=== PATIENT | male | born 1950 | race Hispanic/Latino ===

== ENCOUNTER 2019-02-13 13:29 | Emergency (ER) | payer OTHER ==
--- NOTE | 2019-02-13 14:08 | EDPHYS ---
Physician Documentation [facility] Name: Rei Murcia Age: 68 yrs Sex: Male : 1950 Arrival Date: 02/13/2019 Time: 13:34 Bed 13 Private MD: Efren Ramos R ED Physician Dong Umanzor HPI: 02/13 14:03 This 68 yrs old Male presents to ER via Ambulatory with complaints of Low Back kb Pain. 14:03 The patient presents with pain that is acute, with no known mechanism of injury. kb 14:22 The symptoms are located in the left mid back. The pain does not radiate. The problem kb was sustained from unknown cause. Onset: The symptoms/episode began/occurred acutely, 5 day(s) ago. 14:22 Modifying factors: The patient symptoms are alleviated by nothing, the patient symptoms kb are aggravated by any movement. Associated signs and symptoms: The patient has no apparent associated signs or symptoms. Severity of symptoms: At their worst the symptoms were mild, moderate, in the emergency department the symptoms are unchanged. The patient has not experienced similar symptoms in the past. The patient has not recently seen a physician. Historical: - Allergies: 13:42 No Known Allergies; la1 - Home Meds: 13:42 olmesartan oral 40mg oral 1 tab once daily for Hypertension [Active]; la1 - PMHx: 13:42 Hypertension; la1 - PSHx: 13:42 Hernia repair; shoulder; la1 - Immunization history:: Adult Immunizations up to date. - Social history:: Smoking status: Patient/guardian denies using tobacco. - Ebola Screening: : No symptoms or risks identified at this time. ROS: 14:22 Constitutional: Negative for fever, chills, and weight loss, Cardiovascular: Negative kb for chest pain, palpitations, and edema, Respiratory: Negative for shortness of breath, cough, wheezing, and pleuritic chest pain, Abdomen/GI: Negative for abdominal pain, nausea, vomiting, diarrhea, and constipation, : Negative for injury, bleeding, discharge, and swelling, MS/Extremity: Negative for injury and deformity, Skin: Negative for injury, rash, and discoloration, Neuro: Negative for headache, weakness, numbness, tingling, and seizure. 14:22 Back: Positive for pain at rest, pain with movement, of the left mid back. Exam: 14:22 Constitutional: This is a well developed, well nourished patient who is awake, alert, kb and in no acute distress. Head/Face: Normocephalic, atraumatic. ENT: Nares patent. No nasal discharge, no septal abnormalities noted. Tympanic membranes are normal and external auditory canals are clear. Oropharynx with no redness, swelling, or masses, exudates, or evidence of obstruction, uvula midline. Mucous membranes moist. Neck: Trachea midline, no thyromegaly or masses palpated, and no cervical lymphadenopathy. Supple, full range of motion without nuchal rigidity, or vertebral point tenderness. No Meningismus. Chest/axilla: Normal chest wall appearance and motion. Nontender with no deformity. No lesions are appreciated. Cardiovascular: Regular rate and rhythm with a normal S1 and S2. No gallops, murmurs, or rubs. Normal PMI, no JVD. No pulse deficits. Respiratory: Lungs have equal breath sounds bilaterally, clear to auscultation and percussion. No rales, rhonchi or wheezes noted. No increased work of breathing, no retractions or nasal flaring. Abdomen/GI: Soft, non-tender, with normal bowel sounds. No distension or tympany. No guarding or rebound. No evidence of tenderness throughout. Skin: Warm, dry with normal turgor. Normal color with no rashes, no lesions, and no evidence of cellulitis. MS/ Extremity: Pulses equal, no cyanosis. Neurovascular intact. Full, normal range of motion. Neuro: Awake and alert, GCS 15, oriented to person, place, time, and situation. Cranial nerves II-XII grossly intact. Motor strength 5/5 in all extremities. Sensory grossly intact. Cerebellar exam normal. Normal gait. 14:22 Back: pain, that is moderate, of the left mid back. Vital Signs: 13:42 BP 134 / 91; Pulse 72; Resp 16; Temp 97.3; Pulse Ox 94% on R/A; Weight 120.2 kg; Height la1 5 ft. 11 in. (180.34 cm); Pain 4/10; 13:42 Body Mass Index 36.96 (120.20 kg, 180.34 cm) la1 MDM: 13:44 Patient medically screened. kb 14:24 Data reviewed: vital signs, nurses notes. Data interpreted: Pulse oximetry: on room air kb is 94 %. Interpretation: normal. Counseling: I had a detailed discussion with the patient and/or guardian regarding: the historical points, exam findings, and any diagnostic results supporting the discharge/admit diagnosis, lab results, the need for outpatient follow up, a family practitioner, to return to the emergency department if symptoms worsen or persist or if there are any questions or concerns that arise at home. 14:25 ED course: tenderness to one spot left mid back. No tenderness surrounding area, no kb spinal tenderness. No urinary symptoms. . 02/13 14:00 Order name: Urine Dipstick--Ancillary (enter results) eb Administered Medications: No medications were administered Disposition: 02/13/19 14:07 Discharged to Home. Impression: Myalgia, Low back pain. - Condition is Stable. - Discharge Instructions: Muscle Pain, Adult, Back Pain, Adult, [id number], Back Exercises, [id number]. - Prescriptions for Cyclobenzaprine 10 mg Oral Tablet - take 1 tablet by ORAL route every 8 hours As needed; 21 tablet. Diclofenac Sodium 75 mg Oral Tablet, Delayed Release (E.C.) - take 1 tablet by ORAL route 2 times per day As needed; 30 tablet. - Medication Reconciliation Form, Thank You Letter, Antibiotic Education, Prescription Opioid Use form. - Follow up: Emergency Department; When: As needed; Reason: Worsening of condition. Follow up: Private Physician; When: 2 - 3 days; Reason: Recheck today's complaints, Continuance of care, Re-evaluation by your physician. Signatures: Dispatcher [employer] EDMN Dayanara Friend, JANNET-C ENVIRONMENTAL ENGINEER SCIENTIST-Anamika Mazariegos, RN RN Chuy Chiang RN RN la1 Corrections: (The following items were deleted from the chart) 14:23 14:22 Onset: The symptoms/episode began/occurred acutely, nan 14:37 14:07 02/13/2019 14:07 Discharged to Home. Impression: Myalgia; Low back pain. aj Condition is Stable. Forms are Medication Reconciliation Form, Thank You Letter, Antibiotic Education, Prescription Opioid Use. Follow up: Emergency Department; When: As needed; Reason: Worsening of condition. Follow up: Private Physician; When: 2 - 3 days; Reason: Recheck today's complaints, Continuance of care, Re-evaluation by your physician. kb
--- NOTE | 2019-02-13 14:08 | ER ---
Nurse's Notes [facility] Name: Rei Murcia Age: 68 yrs Sex: Male : 1950 Arrival Date: 02/13/2019 Time: 13:34 Bed 13 Private MD: Efren Ramos R Diagnosis: Myalgia;Low back pain Presentation: 02/13 13:40 Presenting complaint: Patient states: I have a pain in my left lower back that started la1 for the first time on Thursday. pt reports pain is mild and dull at rest and sharp and much worse with movement. denies urinary symptoms. Transition of care: patient was not received from another setting of care. Onset of symptoms was February 13, 2019. Risk Assessment: Do you want to hurt yourself or someone else? Patient reports no desire to harm self or others. Initial Sepsis Screen: Does the patient meet any 2 criteria? No. Patient's initial sepsis screen is negative. Does the patient have a suspected source of infection? No. Patient's initial sepsis screen is negative. Care prior to arrival: None. 13:40 Method Of Arrival: Ambulatory la1 13:40 Acuity: CAMILO 3 la1 Historical: - Allergies: 13:42 No Known Allergies; la1 - Home Meds: 13:42 olmesartan oral 40mg oral 1 tab once daily for Hypertension [Active]; la1 - PMHx: 13:42 Hypertension; la1 - PSHx: 13:42 Hernia repair; shoulder; la1 - Immunization history:: Adult Immunizations up to date. - Social history:: Smoking status: Patient/guardian denies using tobacco. - Ebola Screening: : No symptoms or risks identified at this time. Screenin:36 Abuse screen: Denies threats or abuse. Denies injuries from another. Nutritional aj screening: No deficits noted. Tuberculosis screening: No symptoms or risk factors identified. Fall Risk None identified. Assessment: 14:00 General: Appears in no apparent distress. comfortable, Behavior is calm, cooperative, aj appropriate for age. Pain: Complains of pain in left mid back. Neuro: Level of Consciousness is awake, alert, obeys commands, Oriented to person, place, time, situation, Appropriate for age. Respiratory: Airway is patent Respiratory effort is even, unlabored, Respiratory pattern is regular, symmetrical. Derm: Skin is intact, is healthy with good turgor, Skin is pink, warm \T\ dry. normal. Musculoskeletal: Reports pain in left mid back. Vital Signs: 13:42 BP 134 / 91; Pulse 72; Resp 16; Temp 97.3; Pulse Ox 94% on R/A; Weight 120.2 kg; Height la1 5 ft. 11 in. (180.34 cm); Pain 4/10; 13:42 Body Mass Index 36.96 (120.20 kg, 180.34 cm) la1 ED Course: 13:34 Patient arrived in ED. as 13:34 Efren Ramos MD is Private Physician. as 13:41 Triage completed. la1 13:43 Anamika Barahona, RN is Primary Nurse. aj 13:43 Arm band placed on left wrist. la1 13:44 Dayanara Friend FNP-C is [facility]. kb 13:44 Dong Umanzor MD is Attending Physician. kb 14:35 No provider procedures requiring assistance completed. Patient did not have IV access aj during this emergency room visit. 14:36 Patient has correct armband on for positive identification. aj Administered Medications: No medications were administered Outcome: 14:07 Discharge ordered by MD. kb 14:36 Discharged to home ambulatory. aj 14:36 Condition: good 14:36 Discharge instructions given to patient, Instructed on discharge instructions, follow up and referral plans. medication usage, Demonstrated understanding of instructions, follow-up care, medications, Prescriptions given X 2. 14:37 Patient left the ED. aj Signatures: Dayanara Friend FNP-C FNP-Anmaika Mazariegos RN RN aj Martinez, Amelia as Attema, Lee, RN RN la1
[2019-02-13 18:07] LABS: Urine Blood NEGATIVE (NEG); Urine Glucose NEGATIVE (NEG); Urine Protein TRACE (NEG); Urine Specific Gravity 1.025 (1.005-1.030); Urine pH 5.5 (5.0-7.0)
== END 2019-02-13 14:37 | disposition home or self-care (01) ==
LOC: ER 13:29
DX: M79.10 Myalgia, unspecified site (principal); I10 Essential (primary) hypertension
CPT/HCPCS: 81003

== ENCOUNTER 2019-06-06 06:38 | Day surgery (SDC) | payer OTHER ==
[2019-06-06] MEDS ORDERED: LIDOCAINE 2% MPF 5 ML VIAL ONE (06:54)
[2019-06-06] MEDS ORDERED: LIDOCAINE HCL/PF 3.5% OPTH GEL ONE (06:54)
[2019-06-06] MEDS ORDERED: BUPIVACAINE 0.25% PF 10 ML VIAL ONE (06:54)
[2019-06-06] MEDS ORDERED: NA CHLORIDE 0.9% 500 ML ONE (06:55)
[2019-06-06] MEDS: PHENYLEPHRINE 10% OPTH 5ML ONE ×3 (07:15→07:35)
[2019-06-06] MEDS: CYCLOPENTOLATE 1% OPTH 2 ML ONE ×3 (07:15→07:35)
[2019-06-06] MEDS ORDERED: NS 0.9% VIAL 10 ML ONE (07:33)
[2019-06-06] MEDS ORDERED: LIDOCAINE 1% MPF 2 ML AMPULE ONE (07:38)
[2019-06-06] MEDS: BALANCED SALT IRRIG PLAIN 500 ML BTL IRR ONE ×2 (08:05→08:31)
[2019-06-06] MEDS: EPINEPHRINE/PF 1 MG/ML AMP ONE ×2 (08:05→08:31)
[2019-06-06] MEDS: DUOVISC 1 KIT OPTH ONE ×2 (08:05→08:31)
[2019-06-06] MEDS: TETRACAINE HCL 0.5% 4ML OPTH ONE ×2 (08:06→08:25)
[2019-06-06] MEDS: MOXIFLOXACIN HCL 10 DROPS/ML **OR USE OPTH ONE ×3 (08:06→08:50)
[2019-06-06] MEDS ORDERED: FENTANYL CITR 100 MCG/2 ML ONE (08:18)
[2019-06-06] MEDS ORDERED: MIDAZOLAM HCL 2 MG/2 ML INJ ONE (08:19)
--- NOTE | 2019-06-06 08:59 | P.BOP ---
Preoperative diagnosis: Combined form cataract OS Postoperative diagnosis: Same Primary procedure: Phacoemulsification with Symfony multifocal IOL OS Estimated blood loss: None Anesthesia: Local (Topical with anesthesia for cataract surgery) Complications: None Implants: ZXR00 +19.5 Transferred to: Other (Day surgery) Condition: Good
--- NOTE | 2019-06-06 20:28 | OP ---
Date of Procedure: 06/06/2019 Surgeon: Raissa Hurtado MD Anesthesiologist: Anaya Johnson CRNA and Israel Kramer MD. Preoperative Diagnosis: Combined form of cataract, left eye. Operation Performed: Phacoemulsification with Symfony multifocal intraocular lens implant, left eye. Anesthesia: Per cataract surgery. Complications: None. Description Of Procedure: In the operating room the patient was prepped and draped in the usual ster ile fashion for ophthalmic surgery. A lid speculum was placed in the left eye. Two paracentesis sit es were made superiorly and inferiorly in the limbal cornea. Viscoat was placed in the anterior elvis oralia and a crescent blade was used to make a corneal groove and tunnel, and a keratome was used to ent er the anterior chamber. Provisc was placed in the anterior chamber and a 360 degree capsulotomy was performed with a cystitome. The lens was hydrodissected with BSS and rotated freely. The lens was removed with a stop and chop technique. 11.32 phaco CDE was used to remove the lens. Residual joshua x was removed with the irrigation and aspiration. Provisc was placed in the capsular bag. A ZXR00 + 19.5 lens was placed in the capsular bag without complications. Irrigation and aspiration was used t o remove residual viscoelastic. The paracentesis sites were hydrated with BSS. The wound and parace ntesis sites were inspected and found to be watertight. Vigamox 0.07 cc was placed intracamerally at the end of the procedure. The eye was irrigated with balanced salt solution. The eye was patched w ith a soft cotton patch and Herrera metal shield. The patient was returned to day surgery in good condition. Comments: Akten was placed in the eye in Day Surgery and irrigated out of the eye with BSS in the OR . Preservative-free 1% lidocaine was placed in the anterior chamber prior to Viscoat. Discharge Instructions: Mr. Murcia is discharged to home in good condition. He is to follow up with Dr. Hurtado in the morning. MARILU/FREDY Voice ID: [id number] Report ID: [id number]
== END 2019-06-06 09:30 | disposition home or self-care (01) ==
LOC: OR 06:38
PROVIDERS: ATTEND Ophthalmology Retina Specialist
PROC: 08RK3JZ Replacement of Left Lens with Synthetic Substitute, Percutaneous Approach (ICD-10-PCS; principal; 2019-06-06 08:30)
DX: H25.812 Combined forms of age-related cataract, left eye (principal); I10 Essential (primary) hypertension; M19.042 Primary osteoarthritis, left hand; M19.041 Primary osteoarthritis, right hand; Z83.518 Family history of other specified eye disorder; Z83.3 Family history of diabetes mellitus
CPT/HCPCS: 82962; 66984; J0171; J2250; J3010; J2001

== ENCOUNTER 2020-08-30 14:55 | Emergency (ER) | payer OTHER ==
[2020-08-30] MEDS ORDERED: HYDROCODONE/APAP 10/325 TAB ONE (17:22)
--- NOTE | 2020-08-30 17:43 | RAD REPORT ---
EXAM DESCRIPTION: US - UPPER EXTREMITY VENOUS UNILATE - 08/30/2020 5:27 pm CLINICAL HISTORY: /left arm swelling. COMPARISON: None. FINDINGS: Left internal jugular vein, left subclavian vein, left axillary vein, left brachial vein, left cephalic, left basilic, left ulnar and left radial veins demonstrate phasic signal. The veins ar e compressible. Doppler demonstrates good flow. . IMPRESSION: No sonographic evidence of thrombus involving the left upper extremity veins.
--- NOTE | 2020-08-30 17:44 | RAD REPORT ---
EXAM DESCRIPTION: RAD - Wrist Left 3 View - 08/30/2020 5:28 pm CLINICAL HISTORY: Left wrist pain FINDINGS: No fracture or dislocation is seen. Bones are osteoporotic Mild moderate osteoarthritis involves the first carpometacarpal joint consisting of subchondral scler osis and joint space narrowing
--- NOTE | 2020-08-30 18:21 | EDPHYS ---
Physician Documentation [facility] Name: Rei Murcia Age: 70 yrs Sex: Male : 1950 Arrival Date: 08/30/2020 Time: 14:58 Bed 26 Private MD: ED Physician John Holman Historical: - Allergies: 08/30 15:03 No Known Allergies; hb - Home Meds: 15:03 olmesartan 40mg Oral 1 tab once daily for Hypertension [Active]; hb - PMHx: 15:03 Hypertension; Gout; hb - PSHx: 15:03 Hernia repair; shoulder; hb - Immunization history:: Adult Immunizations up to date. - Social history:: Smoking status: Patient denies any tobacco usage or history of. Vital Signs: 15:01 BP 148 / 88; Pulse 74; Resp 16; Temp 97.9; Pulse Ox 97% on R/A; Pain 7/10; hb MDM: 16:41 Patient medically screened. [facility] 18:17 Data reviewed: vital signs, nurses notes. Counseling: I had a detailed discussion with [facility] the patient and/or guardian regarding: the historical points, exam findings, and any diagnostic results supporting the discharge/admit diagnosis, radiology results, the need for outpatient follow up, to return to the emergency department if symptoms worsen or persist or if there are any questions or concerns that arise at home. ED course: Patient states he performing lifting in the garage yesterday. (+) [place]. Patient put tin a thumb spica and advised to follow up with ortho. Patient understood and agrees with the plan of care. . 08/30 16:43 Order name: Wrist Left (3 View) XRAY; Complete Time: 17:49 [facility] 08/30 16:52 Order name: UPPER EXTREMITY VENOUS UNILATE; Complete Time: 17:49 EDKY 08/30 17:50 Order name: Thumb Spica Splint; Complete Time: 18:08 [facility] Administered Medications: 17:20 Drug: [place] 10 mg-325 mg 1 tabs Route: PO; aa5 Disposition: 08/31 05:09 Co-signature as Attending Physician, John Holman MD I agree with the assessment and kdr plan of care. Disposition: 08/30/20 18:20 Discharged to Home. Impression: Pain in left wrist. - Condition is Stable. - Discharge Instructions: Musculoskeletal Pain, De Quervain Tenosynovitis. - Prescriptions for Ibuprofen 800 mg Oral Tablet - take 1 tablet by ORAL route every 8 hours As needed take with food; 30 tablet. Pepcid 20 mg Oral Tablet - take 1 tablet by ORAL route every 12 hours for 10 days; 20 tablet. - Medication Reconciliation Form, Thank You Letter, Antibiotic Education, Prescription Opioid Use form. - Follow up: Real Rai MD; When: 2 - 3 days; Reason: Recheck today's complaints, Continuance of care, Re-evaluation by your physician. Addendum: 09/06/2020 13:25 Addendum: This is a 70 year old male with a history of htn, gout that presents to the [facility] ED with complaints of left wrist pain. Patient denies known injury. Denies fever. ROS: Positive for joint pain. All other systems negative. PE: Gen NAD, HEENT Atraumatic, ABD Soft, Neck Supple, MS Left wrist painful rom, compartments are soft full radial pulse, pain along the distal radial region, NVI. Neuro A x o x 3. . Signatures: Dispatcher [employer] EDKY John Holman MD MD [facility] Omid Davis PA PA Allie Gore, RN RN aa5 Reina Fuentes, BLANK RN hb Corrections: (The following items were deleted from the chart) 08/30 16:52 16:43 Extremity Venous Uni Ltd+US.RAD.BRZ ordered. [facility] 18:32 18:20 08/30/2020 18:20 Discharged to Home. Impression: Pain in left wrist. Condition is hb Stable. Forms are Medication Reconciliation Form, Thank You Letter, Antibiotic Education, Prescription Opioid Use. Follow up: Real Rai; When: 2 - 3 days; Reason: Recheck today's complaints, Continuance of care, Re-evaluation by your physician. [facility]
--- NOTE | 2020-08-30 18:21 | ER ---
Nurse's Notes [facility] Name: Rei Murcia Age: 70 yrs Sex: Male : 1950 Arrival Date: 08/30/2020 Time: 14:58 Bed 26 Private MD: Diagnosis: Pain in left wrist Presentation: 08/30 15:01 Chief complaint: left hand pain and swelling upon waking today. Hx of gout. Coronavirus hb screen: At this time, the client does not indicate any symptoms associated with coronavirus-19. Ebola Screen: No symptoms or risks identified at this time. Initial Sepsis Screen: Does the patient meet any 2 criteria? No. Patient's initial sepsis screen is negative. Does the patient have a suspected source of infection? No. Patient's initial sepsis screen is negative. Risk Assessment: Do you want to hurt yourself or someone else? Patient reports no desire to harm self or others. Onset of symptoms was August 30, 2020. 15:01 Method Of Arrival: Ambulatory hb 15:01 Acuity: CAMILO 4 hb Historical: - Allergies: 15:03 No Known Allergies; hb - Home Meds: 15:03 olmesartan 40mg Oral 1 tab once daily for Hypertension [Active]; hb - PMHx: 15:03 Hypertension; Gout; hb - PSHx: 15:03 Hernia repair; shoulder; hb - Immunization history:: Adult Immunizations up to date. - Social history:: Smoking status: Patient denies any tobacco usage or history of. Screenin:31 Abuse screen: Denies threats or abuse. Denies injuries from another. Nutritional hb screening: No deficits noted. Tuberculosis screening: No symptoms or risk factors identified. Fall Risk None identified. Assessment: 16:00 General: Appears comfortable, Behavior is calm, cooperative. Pain: Complains of pain in aa5 dorsal aspect of left forearm and left wrist Pain currently is 7 out of 10 on a pain scale. Quality of pain is described as aching, tender, Is continuous. Neuro: Level of Consciousness is awake, alert, obeys commands, Oriented to person, place, time, situation. Cardiovascular: Heart tones S1 S2 present Capillary refill < 3 seconds is brisk in bilateral fingers Rhythm is regular. Respiratory: Airway is patent Respiratory effort is even, unlabored, Respiratory pattern is regular, symmetrical. GI: No signs and/or symptoms were reported involving the gastrointestinal system. : No signs and/or symptoms were reported regarding the genitourinary system. EENT: No signs and/or symptoms were reported regarding the EENT system. Derm: Skin is pink, warm \T\ dry. Musculoskeletal: Swelling present in dorsal aspect of left forearm and left wrist. 17:20 Reassessment: Patient is alert, oriented x 3, equal unlabored respirations, skin aa5 warm/dry/pink. Pt currently at US.. Vital Signs: 15:01 BP 148 / 88; Pulse 74; Resp 16; Temp 97.9; Pulse Ox 97% on R/A; Pain 7/10; hb ED Course: 14:58 Patient arrived in ED. rg4 15:02 Triage completed. hb 15:03 Arm band placed on. hb 15:30 Omid Davis PA is PHCP. [facility] 15:30 John Holman MD is Attending Physician. [facility] 15:59 Allie Hurtado, RN is Primary Nurse. aa5 17:24 Wrist Left (3 View) XRAY In Process Unspecified. EDMS 17:27 UPPER EXTREMITY VENOUS UNILATE In Process Unspecified. EDMS 18:09 Velcro wrist splint applied to left wrist. jp3 18:19 Real Rai MD is Referral Physician. [facility] 18:31 Patient has correct armband on for positive identification. Bed in low position. Call hb light in reach. Side rails up X 1. 18:31 No provider procedures requiring assistance completed. Patient did not have IV access hb during this emergency room visit. Administered Medications: 17:20 Drug: [place] 10 mg-325 mg 1 tabs Route: PO; aa5 Outcome: 18:20 Discharge ordered by . [facility] 18:31 Discharged to home ambulatory. hb 18:31 Condition: stable 18:31 Discharge instructions given to patient, Instructed on discharge instructions, follow up and referral plans. medication usage, Demonstrated understanding of instructions, follow-up care, medications, Prescriptions given X 2. 18:32 Patient left the ED. hb Signatures: Dispatcher [employer] EDMS Omid Davis PA PA jmm Calderon, Audri, BLANK RN aa5 Reina Fuentes RN RN Alyssa Murcia rg4 Danny Wolfe jp3
[2020-08-30 21:27] VITALS: BP 148/88; TEMP 97.9; O2SAT 97
== END 2020-08-30 18:32 | disposition home or self-care (01) ==
LOC: ER 14:55
DX: M25.532 Pain in left wrist (principal); I10 Essential (primary) hypertension; M10.9 Gout, unspecified
CPT/HCPCS: 93971; 99284

== ENCOUNTER 2023-06-03 17:04 | Emergency (ER) | payer OTHER ==
--- NOTE | 2023-06-03 17:59 | RAD REPORT ---
EXAM DESCRIPTION: RAD - Foot Left 3 View - 06/03/2023 5:49 pm CLINICAL HISTORY: PAIN COMPARISON: <Comparisons> FINDINGS: No acute fracture or dislocation seen. No aggressive bony process. Large plantar calcaneal spur.
--- NOTE | 2023-06-03 18:16 | EDPHYS ---
Physician Documentation [facility] Name: Rei Murcia Age: 72 yrs Sex: Male : 1950 Arrival Date: 06/03/2023 Time: 17:04 Bed Treatment Private MD: ED Physician Feliberto Eller HPI: 06/03 17:19 This 72 yrs old Male presents to ER via Unassigned with complaints of Foot kb Injury. 17:19 The patient presents with pain. The complaints affect the left foot. Context: The kb problem was sustained at home, resulted from a mis-step by the patient, the patient can fully bear weight, the patient is able to ambulate. Onset: The symptoms/episode began/occurred 3 day(s) ago. Modifying factors: The symptoms are alleviated by nothing, the symptoms are aggravated by weight bearing. Associated signs and symptoms: The patient has no apparent associated signs or symptoms. Severity of symptoms: At their worst the symptoms were mild, moderate, in the emergency department the symptoms are unchanged. The patient has not experienced similar symptoms in the past. The patient has not recently seen a physician. Patient reports he was walking down some steps 3 days ago and missed stepped. Reports pain to top of left foot closest to the great toe since then. Came in to rule out fracture.. Historical: - Allergies: 17:51 No Known Allergies; ap3 - PMHx: 17:51 Gout; Hypertension; ap3 - Immunization history:: Client reports receiving the 2nd dose of the Covid vaccine. - Social history:: Smoking status: Patient denies any tobacco usage or history of. ROS: 17:20 Constitutional: Negative for fever, chills, and weight loss. kb 17:20 MS/extremity: Positive for pain, of the dorsum of left foot. 17:20 All other systems are negative. Exam: 17:20 Constitutional: This is a well developed, well nourished patient who is awake, alert, kb and in no acute distress. Head/Face: Normocephalic, atraumatic. ENT: Moist Mucous membranes Cardiovascular: Regular rate and rhythm with a normal S1 and S2. No gallops, murmurs, or rubs. No pulse deficits. Respiratory: Respirations even and unlabored. No increased work of breathing. Talking in full sentences Skin: Warm, dry with normal turgor. Normal color. Neuro: Awake and alert, GCS 15, oriented to person, place, time, and situation. Moves all extremities. Normal gait. 17:20 Musculoskeletal/extremity: Extremities: grossly normal except: noted in the dorsum of left foot: pain, tenderness, ROM: intact in all extremities, Circulation is intact in all extremities. Sensation intact. Weight bearing: able to fully bear weight. Vital Signs: 17:48 BP 111 / 76; Pulse 67; Resp 17; Temp 97.4; Pulse Ox 98% ; Pain 2/10; ap3 17:48 Pain Scale: Adult ap3 MDM: 17:09 Patient medically screened. kb 17:20 Differential diagnosis: fracture, sprain, arthritis. Data reviewed: vital signs, nurses kb notes. 18:15 Counseling: I had a detailed discussion with the patient and/or guardian regarding the kb historical points, exam findings, and any diagnostic results supporting the discharge/admit diagnosis, radiology results, the need for outpatient follow up, a orthopedic surgeon, to return to the emergency department if symptoms worsen or persist or if there are any questions or concerns that arise at home. 06/03 17:13 Order name: Foot Left 3 View XRAY; Complete Time: 18:15 kb Administered Medications: No medications were administered Disposition: 06/04 10:05 Co-signature as Attending Physician, Feliberto Eller MD I reviewed the patient's care rt provided by the Advanced Practice Provider and agree with the diagnosis and treatment plan. Disposition Summary: 06/03/23 18:16 Discharge Ordered Location: Home kb Condition: Stable kb Diagnosis - Sprain of foot kb Followup: kb - With: Emergency Department - When: As needed - Reason: Worsening of condition Followup: kb - With: Private Physician - When: 2 - 3 days - Reason: Recheck today's complaints, Continuance of care, Re-evaluation by your physician Discharge Instructions: - Discharge Summary Sheet kb - Foot Sprain kb Forms: - Medication Reconciliation Form kb - Thank You Letter kb - Antibiotic Education kb - Prescription Opioid Use kb - Patient Portal Instructions kb - Leadership Thank You Letter kb Prescriptions: - Diclofenac Sodium 75 mg Oral tablet,delayed release (DR/EC) - take 1 tablet by ORAL route 2 times per day As needed; 30 tablet; Refills: 0, kb Product Selection Permitted Signatures: Dispatcher [employer] MS PhucDayanara FNP-C FNP-Ckb Prokisch, Amanda, RN RN ap3 Feliberto Eller MD MD rt Corrections: (The following items were deleted from the chart) 06/03 18:15 18:15 Counseling: I had a detailed discussion with the patient and/or guardian nan regarding the historical points, exam findings, and any diagnostic results supporting the discharge/admit diagnosis, the need for outpatient follow up, a orthopedic surgeon, to return to the emergency department if symptoms worsen or persist or if there are any questions or concerns that arise at home, nan
--- NOTE | 2023-06-03 18:16 | ER ---
Nurse's Notes [facility] Name: Rei Murcia Age: 72 yrs Sex: Male : 1950 Arrival Date: 06/03/2023 Time: 17:04 Bed Treatment Private MD: Diagnosis: Sprain of foot Presentation: 06/03 17:48 Chief complaint: Patient states: he fell down the stairs yesterday, falling on his ap3 bottom and injuring the top of his left foot. patient reports the pain to be a 2/10 at this time on the pain scale. Coronavirus screen: At this time, the client does not indicate any symptoms associated with coronavirus-19. Ebola Screen: No symptoms or risks identified at this time. Initial Sepsis Screen: Does the patient meet any 2 criteria? No. Patient's initial sepsis screen is negative. Does the patient have a suspected source of infection? No. Patient's initial sepsis screen is negative. Risk Assessment: Do you want to hurt yourself or someone else? Patient reports no desire to harm self or others. Onset of symptoms was June 02, 2023. 17:48 Method Of Arrival: Wheelchair ap3 17:48 Acuity: CAMILO 4 ap3 Triage Assessment: 17:50 General: Appears in no apparent distress. Behavior is calm, cooperative, appropriate ap3 for age. Pain: Complains of pain in dorsum of left foot. Neuro: Level of Consciousness is awake, alert, obeys commands, Oriented to person, place, time, situation. Cardiovascular: Patient's skin is warm and dry. Respiratory: Airway is patent Respiratory effort is even, unlabored, Respiratory pattern is regular, symmetrical. GI: No deficits noted. : No deficits noted. Derm: No deficits noted. Musculoskeletal: Reports pain in left foot and dorsum of left foot. Injury Description: fall yesterday. Historical: - Allergies: 17:51 No Known Allergies; ap3 - PMHx: 17:51 Gout; Hypertension; ap3 - Immunization history:: Client reports receiving the 2nd dose of the Covid vaccine. - Social history:: Smoking status: Patient denies any tobacco usage or history of. Screenin:50 [facility] ED Fall Risk Assessment (Adult) History of falling in the last 3 months, ap3 including since admission Yes- single mechanical fall (1 pt) Confusion or Disorientation No (0 pts) Intoxicated or Sedated No (0 pts) Impaired Gait No (0 pts) Mobility Assist Device Used No (0 pt) Altered Elimination No (0 pt). Abuse screen: Denies threats or abuse. Nutritional screening: No deficits noted. Tuberculosis screening: No symptoms or risk factors identified. Vital Signs: 17:48 BP 111 / 76; Pulse 67; Resp 17; Temp 97.4; Pulse Ox 98% ; Pain 2/10; ap3 17:48 Pain Scale: Adult ap3 ED Course: 17:07 Patient arrived in ED. rg4 17:09 Dayanara Friend [facility]C [facility]. kb 17:09 Feliberto Eller MD is Attending Physician. kb 17:50 Triage completed. ap3 17:50 Foot Left 3 View XRAY In Process Unspecified. EDMS 17:51 Arm band placed on right wrist. ap3 17:51 Patient has correct armband on for positive identification. Call light in reach. Adult ap3 w/ patient. Pulse ox on. NIBP on. 18:25 Anamika Cardenas, RN is Primary Nurse. ap3 18:25 No provider procedures requiring assistance completed. Patient did not have IV access ap3 during this emergency room visit. 18:26 Provided Education on: discharge instruction. ap3 Administered Medications: No medications were administered Medication: 17:51 VIS not applicable for this client. ap3 Outcome: 18:16 Discharge ordered by . kb 18:25 Discharged to home ambulatory. ap3 18:25 Condition: good 18:25 Discharge instructions given to patient, Instructed on discharge instructions, follow up and referral plans. medication usage, Demonstrated understanding of instructions, follow-up care, medications, Prescriptions given X 1. 18:26 Patient left the ED. ap3 Signatures: Dispatcher [employer] EDIA Dayanara Friend FNP-C FNP-Ckb Garcia, Rubi rg4 Anamika Cardenas, RN RN ap3
[2023-06-03 18:30] VITALS: BP 111/76; TEMP 97.4; O2SAT 98
== END 2023-06-03 18:26 | disposition home or self-care (01) ==
LOC: ER 17:04
DX: S93.602A Unspecified sprain of left foot, initial encounter (principal)